=== PATIENT | female | born 1945 | race Hispanic/Latino ===

== ENCOUNTER 2019-05-08 11:37 | Observation (INO) | payer MEDICARE ==
[~2019-05-08] VITALS: Ht 153.7 cm; Wt 70.2 kg
[~2019-05-08 11:37] MED LIST: ACETAZOLAMIDE250 MG PO; GABAPENTIN100 MG; MEDROL4 MG/DOSE-
--- OUTSIDE RECORDS SUMMARY | 2019-05-08 11:43 | XMS REPORT | Summary of Care ---
Author Author [facility] [place] Organization [facility] [place] Address Unknown Phone Unavailable Encounter HQ Encntr_teetee(FIN) [id number] Date(s): 04/21/15 - 04/21/15 [facility] [place] [address] [address]- [facility] [phone] Discharge Disposition: Home Attending Physician: Quinton Jarrett MD Vital Signs No data available for this section Problem List Condition Effective Dates Status Health Status Informant Asthma(Confirmed) Active Cystocele(Confirmed) Active Diverticulitis(Confi Active rmed) Allergies, Adverse Reactions, Alerts Substance Reaction Severity Status contrast media Patient states difficulty with breathing Severe Active (iodine-based)1 1patient states reaction was 4-5 years ago Medications No data available for this section Results No data available for this section Immunizations No data available for this section Procedures Procedure Date Related Diagnosis Body Site Laparoscopic cholecystectomy 01/21/12 Social History Social History Type Response Alcohol Never Smoking Status Never smoker; Type: Cigarettes; Exposure to Tobacco Smoke None; Cigarette Smoking Last 365 Days No; Reg Smoking Cessation Counseling No Assessment and Plan No data available for this section
--- OUTSIDE RECORDS SUMMARY | 2019-05-08 11:43 | XMS REPORT | Summary of Care ---
Author Author [facility] [place] Organization [facility] [place] Address Unknown Phone Unavailable Encounter HQ Encntr_teetee(FIN) [id number] Date(s): 04/07/16 - 04/07/16 [facility] [place] [address] [address] [phone] Discharge Disposition: Home or Self Care Attending Physician: Quinton Jarrett MD Vital Signs [...]
--- OUTSIDE RECORDS SUMMARY | 2019-05-08 11:43 | XMS REPORT | Summary of Care ---
Author Organization Unknown Address Unknown Phone Unavailable Encounter HQ Encntr_teetee(FIN) [id number] Date(s): 12/25/14 - 12/25/14 [facility] [place] [address] [address]- [facility] [phone] Discharge Disposition: Home Physician Attending: Quinton Jarrett MD Vital Signs No data [...]
--- OUTSIDE RECORDS SUMMARY | 2019-05-08 11:43 | XMS REPORT | Summary of Care ---
Author Organization Unknown Address Unknown Phone Unavailable Encounter HQ Shenntr_teetee(KOBI) [id number] Date(s): 04/01/14 - 04/02/14 [facility] [address] Discharge Disposition: Home Physician Attending: Cherry Dennis MD Physician_Referring: Cherry Dennis MD Reason for Visit UNK Vital Signs 1 2 3 Most recent to oldest [Reference Range]: 162.56 cm (03/26/14 1:54 PM) Height 98.1 DegF (04/02/14 7:40 AM) 99.2 DegF *HI* (04/02/14 4:21 AM) 98.2 DegF (04/01/14 11:32 PM) Temperature Oral [96.4-99.1 DegF] 126 mmHg (04/02/14 7:40 AM) 124 mmHg (04/02/14 4:21 AM) 134 mmHg (04/01/14 11:32 PM) Systolic Blood Pressure [90-140 mmHg] 71 mmHg (04/02/14 7:40 AM) 71 mmHg (04/02/14 4:21 AM) 60 mmHg (04/01/14 11:32 PM) Diastolic Blood Pressure [60-90 mmHg] 18 BRMIN (04/02/14 7:40 AM) 18 BRMIN (04/02/14 4:21 AM) 18 BRMIN (04/01/14 11:32 PM) Respiratory Rate [14-20 BRMIN] 65 bpm (04/02/14 7:40 AM) 75 bpm (04/02/14 4:21 AM) 77 bpm (04/01/14 11:32 PM) Peripheral Pulse Rate [60-100 bpm] 69.545 kg (03/26/14 1:54 PM) Weight 26.32 m2 (03/26/14 1:54 PM) Body Mass Index Problem List Condition Effective Dates Status Health Status Informant Asthma(Confirmed) Active Cystocele(Confirmed) Active Diverticulitis(Confi Active rmed) Allergies, Adverse Reactions, Alerts Substance Reaction Severity Status contrast media Patient states difficulty with breathing Severe Active (iodine-based)1 1patient states reaction was 4-5 years ago Medications acetaminophen 1,000 mg, Route: IVPB, Drug form: INJ, ONCE, Dosing Weight 69.545, kg, PRN Pain Score 1-3, Start date: 04/01/14 14:01:00, Duration: 1 doses or times, Stop date: Limited # of times Start Date: 04/01/14 Stop Date: 04/01/14 Status: Discontinued acetaminophen-codeine #3 1 tab, Route: PO, Drug Form: TAB, Dosing Weight 69.545, kg, Q4H, PRN Pain Score 1-3, Start date: 04/01/14 15:29:00, Duration: 30 day, Stop date: 05/01/14 15:28: 00 Notes: Do not exceed 4gm/day of acetaminophen. (Same as: Tylenol with Codeine # 3) Start Date: 04/01/14 Stop Date: 04/02/14 Status: Discontinued Antibiotic Antibiotic, 1 tab, PO, BID, Refill(s) 0 Start Date: 03/26/14 Status: Ordered atorvastatin 20 mg, Daily, 0 Refill(s) Start Date: 04/01/14 Status: Ordered Cholesterol Pill Cholesterol Pill, 1 tab, PO, Daily, Refill(s) 0 Start Date: 03/26/14 Status: Ordered Dextrose 5% in Lactated Ringers IV 1,000 mL 1,000 mL, Rate: 125 ml/hr, Infuse over: 8 hr, Route: IV, Dosing Weight 69.545 kg , Total Volume: 1,000, Start date: 04/01/14 15:29:00, Duration: 30 day, Stop birdie e: 05/01/14 15:28:00 Start Date: 04/01/14 Stop Date: 04/02/14 Status: Discontinued docusate 100 mg, 1 cap, Route: PO, Drug form: CAP, BID, Dosing Weight 69.545, kg, PRN Con stipation, Start date: 04/01/14 15:29:00, Duration: 30 day, Stop date: 05/01/14 15:28:00 Notes: (Same as: Colace) (Do Not Crush) Start Date: 04/01/14 Stop Date: 04/02/14 Status: Discontinued fentaNYL 25 microgram, Route: IVP, Q5Min, Dosing Weight 69.545, kg, PRN Pain Score 4-6, S tart date: 04/01/14 14:01:00, Duration: 4 doses or times, Stop date: Limited # o f times Start Date: 04/01/14 Stop Date: 04/01/14 Status: Discontinued Flagyl 500 mg oral tablet 500 mg=1 tab, Q12H, 0 Refill(s) Start Date: 04/01/14 Status: Ordered flumazenil 0.2 mg, Route: IVP, PRN, Dosing Weight 69.545, kg, PRN Benzodiazepine Reversal, Initial dose, Start date: 04/01/14 14:01:00, Duration: 30 day, Stop date: 14:00:00 Start Date: 04/01/14 Stop Date: 04/01/14 Status: Discontinued hydromorphone 0.5 mg, Route: IVP, Q5Min, Dosing Weight 69.545, kg, PRN Pain Score 7-10, Start date: 04/01/14 14:01:00, Duration: 4 doses or times, Stop date: Limited # of melo es Start Date: 04/01/14 Stop Date: 04/01/14 Status: Discontinued ketorolac 15 mg, 1 mL, Route: IM, Drug form: INJ, Q6H, Dosing Weight 69.545, kg, Start birdie e: 04/01/14 18:00:00, Duration: 4 day, Stop date: 04/05/14 12:00:00 Notes: (Same as:Toradol) IV bolus must be given >15 seconds. Give IM administration slowly and deeply into the muscle. Not for use > 4 days. Start Date: 04/01/14 Stop Date: 04/02/14 Status: Discontinued Lactated Ringers Injection IV 1000 mL 1,000 mL, Rate: 25 ml/hr, Infuse over: 40 hr, Route: IV, Dosing Weight 69.545 kg , Total Volume: 1,000, Start date: 04/01/14 10:15:00, Duration: 30 day, Stop birdie e: 05/01/14 10:14:00 Start Date: 04/01/14 Stop Date: 04/01/14 Status: Discontinued meclizine 25 mg oral tablet 25 mg=1 tab, Daily, 0 Refill(s) Start Date: 04/01/14 Status: Ordered meperidine 25 mg, 0.5 mL, Route: IM, Drug form: INJ, Q3H, Dosing Weight 69.545, kg, PRN Xander n Score 7-10, Start date: 04/01/14 15:29:00, Duration: 48 hr, Stop date: 4 15:28:00 Notes: (Same As: Demerol) Start Date: 04/01/14 Stop Date: 04/02/14 Status: Discontinued meperidine 12.5 mg, Route: IVP, Q30Min, Dosing Weight 69.545, kg, PRN Other -See Comment, F or shivering, Start date: 04/01/14 14:01:00, Duration: 2 doses or times, Stop da te: Limited # of times Start Date: 04/01/14 Stop Date: 04/01/14 Status: Discontinued naloxone 0.04 mg, Route: IVP, Q2MIN, Dosing Weight 69.545, kg, PRN Narcotic Reversal, Sta rt date: 04/01/14 14:01:00, Duration: 8 doses or times, Stop date: Limited # of times Start Date: 04/01/14 Stop Date: 04/01/14 Status: Discontinued [place] 5/325 oral tablet 1 tab, Route: PO, Drug Form: TAB, Dosing Weight 69.545, kg, Q4H, PRN Pain, Start date: 04/01/14 14:01:00, Duration: 30 day, Stop date: 05/01/14 14:00:00 Start Date: 04/01/14 Stop Date: 04/01/14 Status: Discontinued omeprazole 40 mg, Daily, 0 Refill(s) Start Date: 04/01/14 Status: Ordered ondansetron 4 mg, Route: IVP, ONCE, Dosing Weight 69.545, kg, PRN Nausea & Vomiting, Start date: 04/01/14 14:01:00 Start Date: 04/01/14 Stop Date: 04/01/14 Status: Discontinued simethicone 160 mg, 2 tab, Route: PO, Drug form: CHEWTAB, Q2H, Dosing Weight 69.545, kg, PRN Gas, Start date: 04/01/14 15:29:00, Duration: 30 day, Stop date: 05/01/14 15:28 :00 Notes: (Same as: Mi) Start Date: 04/01/14 Stop Date: 04/02/14 Status: Discontinued tramadol 50 mg, 1 tab, Route: PO, Drug form: TAB, Q4H, Dosing Weight 69.545, kg, PRN Pain Score 4-6, Start date: 04/01/14 15:29:00, Duration: 48 hr, Stop date: 04/03/14 15:28:00 Notes: Not to exceed 400mg/day. (Same As: Ultram) Start Date: 04/01/14 Stop Date: 04/02/14 Status: Discontinued Results ELECTROLYTES Most recent to 1 2 oldest [Reference Range]: Sodium Lvl [135-145 139 mEq/L mEq/L] (03/26/14 2:45 PM) Potassium Lvl 3.6 mEq/L [3.5-5.1 mEq/L] (03/26/14 2:45 PM) Chloride Lvl [95-109 102 mEq/L mEq/L] (03/26/14 2:45 PM) CO2 [24-32 mEq/L] 29 mEq/L (03/26/14 2:45 PM) AGAP [10.0-20.0 11.6 mEq/L mEq/L] (03/26/14 2:45 PM) CHEM PANEL Most recent to 1 2 oldest [Reference Range]: Creatinine Lvl 0.6 mg/dL [0.5-1.4 mg/dL] (03/26/14 2:45 PM) eGFR 93 mL/min/1.73m2 1 *NA* (03/26/14 2:45 PM) BUN [7-22 mg/dL] 9 mg/dL (03/26/14 2:45 PM) B/C Ratio [6-25] 15 (03/26/14 2:45 PM) Glucose Lvl [70-99 115 mg/dL 2 mg/dL] *HI* (03/26/14 2:45 PM) Total Protein 7.3 g/dL [6.4-8.4 g/dL] (03/26/14 2:45 PM) Albumin Lvl [3.5-5.0 3.7 g/dL g/dL] (03/26/14 2:45 PM) Globulin [2.0-4.0 3.6 g/dL g/dL] (03/26/14 2:45 PM) A/G Ratio [0.7-1.6] 1.0 (03/26/14 2:45 PM) Calcium Lvl 8.9 mg/dL [8.5-10.5 mg/dL] (03/26/14 2:45 PM) ALT [0-65 unit/L] 28 unit/L (03/26/14 2:45 PM) AST [0-37 unit/L] 17 unit/L (03/26/14 2:45 PM) Alk Phos [39-136 83 unit/L unit/L] (03/26/14 2:45 PM) Bili Total [0.2-1.3 0.4 mg/dL mg/dL] (03/26/14 2:45 PM) 1Result Comment: The eGFR is calculated using the CKD-EPI formula. In most young, healthy individuals the eGFR will be >90 mL/min/1.73m2. The eGFR declines with age. An eGFR of 60-89 may be normal in some populations, particularly the elderly, for whom the CKD-EPI formula has not been extensively validated. Use of the eGFR is not recommended in the following populations: Individuals with unstable creatinine concentrations, including patients and those with serious co-morbid conditions. Patients with extremes in muscle mass or diet. The data above are obtained from the National Kidney Disease Education Program ( NKDEP) which additionally recommends that when the eGFR is used in patients with extremes of body mass index for purposes of drug dosing, the eGFR should be mul tiplied by the estimated BMI. 2Interpretive Data: Adult reference range values reflect the clinical guidelines of the [place] [employer]. URINE AND STOOL Most recent to 1 2 oldest [Reference Range]: UA Turbidity [Clear] Clear (04/02/14 11:45 AM) UA Color Ltyellow *NA* (04/02/14 11:45 AM) UA pH [5.0-8.0] 7.0 (04/02/14 11:45 AM) UA Spec Grav 1.004 [<=1.030] (04/02/14 11:45 AM) UA Glucose [Negative Negative mg/dL mg/dL] *NA* (04/02/14 11:45 AM) UA Blood [Negative] Large *ABN* (04/02/14 11:45 AM) UA Ketones [Negative Negative mg/dL mg/dL] *NA* (04/02/14 11:45 AM) UA Protein [Negative Negative mg/dL mg/dL] (04/02/14 11:45 AM) UA Urobilinogen <=1.0 mg/dL [0.1-1.0 mg/dL] *NA* (04/02/14 11:45 AM) UA Bili [Negative] Negative *NA* (04/02/14 11:45 AM) UA Leuk Est Moderate [Negative] *ABN* (04/02/14 11:45 AM) UA Nitrite Negative [Negative] (04/02/14 11:45 AM) UA WBC [0-5 /HPF] 58 /HPF *HI* (04/02/14 11:45 AM) UA RBC [0-2 /HPF] 129 /HPF *HI* (04/02/14 11:45 AM) UA Bacteria [None Occasional /HPF Seen /HPF] *NA* (04/02/14 11:45 AM) UA Sq Epi [Few /LPF] Occasional /LPF *NA* (04/02/14 11:45 AM) UA Amorph [place] [None Occasional /HPF Seen /HPF] *NA* (04/02/14 11:45 AM) HEMATOLOGY Most recent to 1 2 oldest [Reference Range]: WBC [3.7-10.4 K/CMM] 10.8 K/CMM 8.2 K/CMM *HI* (03/26/14 2:45 PM) (04/02/14 6:39 AM) RBC [4.20-5.40 4.16 M/CMM 4.50 M/CMM M/CMM] *LOW* (03/26/14 2:45 PM) (04/02/14 6:39 AM) Hgb [12.0-16.0 g/dL] 13.4 g/dL 14.4 g/dL (04/02/14 6:39 AM) (03/26/14 2:45 PM) Hct [36.0-48.0 %] 39.2 % 42.4 % (04/02/14 6:39 AM) (03/26/14 2:45 PM) MCV [81.0-99.0 fL] 94.2 fL 94.3 fL (04/02/14 6:39 AM) (03/26/14 2:45 PM) MCH [27.0-31.0 pg] 32.2 pg 32.1 pg *HI* *HI* (04/02/14 6:39 AM) (03/26/14 2:45 PM) MCHC [32.0-36.0 34.1 g/dL 34.0 g/dL g/dL] (04/02/14 6:39 AM) (03/26/14 2:45 PM) RDW [11.5-14.5 %] 13.4 % 13.7 % (04/02/14 6:39 AM) (03/26/14 2:45 PM) Platelet [133-450 266 K/CMM 265 K/CMM K/CMM] (04/02/14 6:39 AM) (03/26/14 2:45 PM) MPV [7.4-10.4 fL] 8.6 fL 9.1 fL (04/02/14 6:39 AM) (03/26/14 2:45 PM) Segs [45.0-75.0 %] 71.2 % 55.3 % (04/02/14 6:39 AM) (03/26/14 2:45 PM) Lymphocytes 20.8 % 30.1 % [20.0-40.0 %] (04/02/14 6:39 AM) (03/26/14 2:45 PM) Monocytes [2.0-12.0 6.3 % 9.1 % %] (04/02/14 6:39 AM) (03/26/14 2:45 PM) Eosinophils [0.0-4.0 1.0 % 4.3 % %] (04/02/14 6:39 AM) *HI* (03/26/14 2:45 PM) Basophils [0.0-1.0 0.7 % 1.2 % %] (04/02/14 6:39 AM) *HI* (03/26/14 2:45 PM) Segs-Bands # 7.7 K/CMM 4.5 K/CMM [1.5-8.1 K/CMM] (04/02/14 6:39 AM) (03/26/14 2:45 PM) Lymphocytes # 2.2 K/CMM 2.5 K/CMM [1.0-5.5 K/CMM] (04/02/14 6:39 AM) (03/26/14 2:45 PM) Monocytes # [0.0-0.8 0.7 K/CMM 0.7 K/CMM K/CMM] (04/02/14 6:39 AM) (03/26/14 2:45 PM) Eosinophils # 0.1 K/CMM 0.3 K/CMM [0.0-0.5 K/CMM] (04/02/14 6:39 AM) (03/26/14 2:45 PM) Basophils # [0.0-0.2 0.1 K/CMM 0.1 K/CMM K/CMM] (04/02/14 6:39 AM) (03/26/14 2:45 PM) Medications Administered During Your Visit No data available for this section Immunizations No data available for this section Procedures Procedure Type Body Site Date of Procedure Related Diagnosis Laparoscopic 01/21/12 12:00 AM cholecystectomy Social History Social History Type Response Alcohol Use: Never Smoking Status Never smoker, Type: Cigarettes, Exposure to Tobacco Smoke None, Cigarette Smoking Last 365 Days No, Reg Smoking Cessation Counseling No
--- OUTSIDE RECORDS SUMMARY | 2019-05-08 11:43 | XMS REPORT | Summary of Care ---
Author Author [facility] [place] Organization [facility] [place] Address Unknown Phone Unavailable Encounter HQ Marysol_teetee(FIN) [id number] Date(s): 10/22/18 - 10/22/18 [facility] [place] [address] [phone] Discharge Disposition: Home or Self Care Attending Physician: Quinton Jarrett MD Referring Physician: Quinton Jarrett MD Vital Signs No [...] Procedures Procedure Date Related Diagnosis Body Site Status Laparoscopic cholecystectomy 01/21/12 Completed Social History Social History Type Response Alcohol Never Smoking Status Never smoker; Type: Cigarettes; Exposure to Tobacco Smoke None; Cigarette Smoking Last 365 Days No; Reg Smoking Cessation Counseling No entered on: 03/26/14 Assessment and Plan No data available for this section
--- OUTSIDE RECORDS SUMMARY | 2019-05-08 11:43 | XMS REPORT ---
Author Author [facility] Address Unknown Phone Unavailable Care Team Providers Care Belt Measurer Name Role Phone Unavailable Unavailable Payers Payer Name Policy Type Policy Number Effective Date Expiration Date Problems This patient has no known problems. Allergies, Adverse Reactions, Alerts Allergy Name Allergy Type Status Severity Reaction(s) Onset Date Inactive Date Treating Clinician Comments No Known Allergies DA Active U 2018-12-21 00:00:00 Medications This patient has no known medications. Results Test Description Test Time Test Comments Text Results Atomic Results Result Comments SCR MAMM BILATERAL RICK CAD DIGITAL 2018-12-27 10:54:12 - SCR MAMM BILATERAL RICK CAD DIGITALBILATERAL DIGITAL SCREENING MAMMOGRAM 3D/2D WITH CAD: 12/27/2018CLINICAL: Asymptomatic. Digital breast tomosynthesis was performed in addition to routine CC and MLO views. Current mammographic images were evaluated by either a [employer] M-Vu or a [employer] ImageChecker CAD (computer aided detection system). Comparison is made to exams dated 06/09/2016 mammogram, mammogram, and 06/03/2014 mammogram - [facility]-. The tissue of both breasts is predominantly fatty. No suspicious mass, architectural distortion, malignant type calcification, or lymph node abnormality detected. Breast architecture is stable compared to prior exams.IMPRESSION: NEGATIVEThere is no mammographic evidence of malignancy. Resume annual screening mammography in one year. Bandar Brown M.D. qn/penrad:12/27/2018 10:54:12 [employer]: Garima IRIZARRY, [facility]-FWletter sent: BIRADS 1-2 Normal Mammogram BI-RADS: 1 Negative CHEMISTRY 8 PROFILE 2018-12-21 14:41:00 ISTAT-SODIUM (test code=NAP) mmol/L 135-148 ISTAT-POTASSIUM (test code=KP) mmol/L 3.5-5.5 ISTAT-CHLORIDE (test code=CLP) mmol/L 101-109 ISTAT CARBON DIOXIDE (test code=ISTAT-CO2) mmol/L 21-32 ISTAT CALCIUM IONIZED (test code=ISTAT-AMENA) mg/dL 1.12-1.32 ISTAT-ANION GAP (test code=GAPP) MEQ/L 10-20 ISTAT-GLUCOSE (test code=GLUP) mg/dL 74-106 ISTAT-BUN (test code=BUNP) mg/dL 3-21 BEDSIDE CREATININE (test code=CREATBED) mg/dL 0.7-1.3 GLOMERULAR FILTRATION RATE POC (test code=GFRBED) 121 >60 CHEMISTRY 8 [id number] 14:41:00* Test Item Value Reference Range Comments ISTAT-SODIUM (test code=NAP) 141 mmol/L 135-148 ISTAT-POTASSIUM (test code=KP) 3.2 mmol/L 3.5-5.5 ISTAT-CHLORIDE (test code=CLP) 104 mmol/L 101-109 ISTAT CARBON DIOXIDE (test code=ISTAT-CO2) 25.0 mmol/L 21-32 ISTAT CALCIUM IONIZED (test code=ISTAT-AMENA) 1.19 mg/dL 1.12-1.32 ISTAT-ANION GAP (test code=GAPP) 16.0 MEQ/L 10-20 ISTAT-GLUCOSE (test code=GLUP) 116 mg/dL 74-106 ISTAT-BUN (test code=BUNP) 18 mg/dL 3-21 BEDSIDE CREATININE (test code=CREATBED) 0.5 mg/dL 0.7-1.3 GLOMERULAR FILTRATION RATE POC (test code=GFRBED) 121 >60 BASIC METABOLIC [id number] 11:35:00* Test Item Value Reference Range Comments SODIUM (test code=NA) 141 mmol/L 136-145 POTASSIUM (test code=K) 3.3 mmol/L 3.5-5.1 CHLORIDE (test code=CL) 107.0 mmol/L 98-107 CARBON DIOXIDE (test code=CO2) 27.0 mmol/L 21-32 ANION GAP (test code=GAP) 10.3 10-20 GLUCOSE (test code=GLU) 113 mg/dL 74-106 BLOOD UREA NITROGEN (test code=BUN) 18 mg/dL 7-18 GLOMERULAR FILTRATION RATE (test code=GFR) > 60 mL/min >=60 Estimated GFR by using Modified MDRD formula.Chronic kidney disease is defined as either kidney damageor GFR <60 mL/min/1.73 m2 for >3 months. CREATININE (test code=CREAT) 0.60 mg/dL 0.55-1.02 Note change in reference range due to change in reagent. BUN/CREATININE RATIO (test code=BUN/CREA) 30.0 10-20 CALCIUM (test code=CA) 9.2 mg/dL 8.5-10.1 TROPONIN I [id number] 11:14:00* Test Item Value Reference Range Comments TROPONIN I RAPID (test code=TROPIRAP) 0.00 ng/mL <0.08 Please Note New Reference Range 0.00-0.079 ng/mL - Negative>or=0.08 ng/mL - Positive The use of serial sampling and testing protocol is arecommended practice.An elevated troponin level alone is often not sufficient fordiagnosis of myocardial infarction. Troponin results obtained by different assays may vary.Evaluation of the extent of myocardial damage based onincrease of troponin would be valid only if similarmethodology is used. CBC W/O [id number] 11:10:00* Test Item Value Reference Range Comments WHITE BLOOD CELL (test code=WBC) K/mm3 4.5-12.5 RED BLOOD CELL (test code=RBC) mill/mm3 3.7-5.2 HEMOGLOBIN (test code=HGB) 15.1 gram/dL 11.5-15.5 HEMATOCRIT (test code=HCT) % 36.0-46.0 MEAN CELL VOLUME (test code=MCV) fL 80-98 MEAN CELL HGB (test code=MCH) picogram 27.0-33.0 MEAN CELL HGB CONCETRATION (test code=MCHC) gram/dL 33.0-36.0 RED CELL DISTRIBUTION WIDTH (test code=RDW) % 11.6-16.2 PLATELET COUNT (test code=PLT) K/mm3 150-450 MEAN PLATELET VOLUME (test code=MPV) fL 6.7-11.0 CBC W/O [id number] 11:10:00* Test Item Value Reference Range Comments WHITE BLOOD CELL (test code=WBC) 9.8 K/mm3 4.5-12.5 RED BLOOD CELL (test code=RBC) 4.95 mill/mm3 3.7-5.2 HEMOGLOBIN (test code=HGB) 15.1 gram/dL 11.5-15.5 HEMATOCRIT (test code=HCT) 47.8 % 36.0-46.0 MEAN CELL VOLUME (test code=MCV) 96.6 fL 80-98 MEAN CELL HGB (test code=MCH) 30.5 picogram 27.0-33.0 MEAN CELL HGB CONCETRATION (test code=MCHC) 31.6 gram/dL 33.0-36.0 RED CELL DISTRIBUTION WIDTH (test code=RDW) 13.2 % 11.6-16.2 PLATELET COUNT (test code=PLT) 256 K/mm3 150-450 MEAN PLATELET VOLUME (test code=MPV) 10.9 fL 6.7-11.0
--- OUTSIDE RECORDS SUMMARY | 2019-05-08 11:43 | XMS REPORT | Continuity of Care Document ---
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 Name Role Phone [employer] Unavailable Unavailable Problems Problem Status Onset Date Classification Date Reported Comments Source DX: G50.0=TRIGEMINAL NEURALGIA Active 09/27/2016 [facility] R10.2 - PELVIC AND PERINEAL PAIN Active 04/05/2016 [facility] [place] UNK Active 03/24/2014 [facility] Asthma (disorder) Active [facility] [place] 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 [facility]/25/2018 [facility] Diverticulitis (disorder) Active Problem 10/25/2018 [facility] TRIGEMINAL NEURALGIA Active [facility] Medications Medication Details Route Status Patient Instructions Ordering Provider Order Date Source Ketorolac 15 mg, 1 mL, Route: IM, Drug form: INJ, Q6H, Dosing Weight 69.545, kg, Start date: 04/01/14 18:00:00, Duration: 4 day, Stop date: 04/05/14 12:00:00Notes: (Same as:Toradol) IV bolus must be given >15 seconds. Give IM administration slowly and deeply into the muscle. Not for use > 4 days. No Longer Active 04/01/2014 [facility] Meperidine 25 mg, 0.5 mL, Route: IM, Drug form: INJ, Q3H, Dosing Weight 69.545, kg, PRN Pain Score 7-10, Start date: 04/01/14 15:29:00, Duration: 48 hr, Stop date: 04/03/14 15:28:00Notes: (Same As: Demerol) No Longer Active 04/01/2014 [facility] Tramadol 50 mg, 1 tab, Route: PO, Drug form: TAB, Q4H, Dosing Weight 69.545, kg, PRN Pain Score 4-6, Start date: 04/01/14 15:29:00, Duration: 48 hr, Stop date: 04/03/14 15:28:00Notes: Not to exceed 400mg/day. (Same As: Ultram) No Longer Active 04/01/2014 [facility] Calcium Chloride 0.002 MEQ/ML / Glucose 50 MG/ML / Potassium Chloride 0.004 MEQ/ML / Sodium Chloride 0.147 MEQ/ML Injectable Solution 1,000 mL, Rate: 125 ml/hr, Infuse over: 8 hr, Route: IV, Dosing Weight 69.545 kg, Total Volume: 1,000, Start date: 04/01/14 15:29:00, Duration: 30 day, Stop date: 05/01/14 15:28:00 No Longer Active 04/01/2014 [facility] acetaminophen-codeine #3 1 tab, Route: PO, Drug Form: TAB, Dosing Weight 69.545, kg, Q4H, PRN Pain Score 1-3, Start date: 04/01/14 15:29:00, Duration: 30 day, Stop date: 05/01/14 15:28:00Notes: Do not exceed 4gm/day of acetaminophen. (Same as: Tylenol with Codeine # 3) No Longer Active 04/01/2014 [facility] Docusate 100 mg, 1 cap, Route: PO, Drug form: CAP, BID, Dosing Weight 69.545, kg, PRN Constipation, Start date: 04/01/14 15:29:00, Duration: 30 day, Stop date: 05/01/14 15:28:00Notes: (Same as: Colace) (Do Not Crush) No Longer Active 04/01/2014 [facility] Simethicone 160 mg, 2 tab, Route: PO, Drug form: CHEWTAB, Q2H, Dosing Weight 69.545, kg, PRN Gas, Start date: 04/01/14 15:29:00, Duration: 30 day, Stop date: 05/01/14 15:28:00Notes: (Same as: Mylicon) No Longer Active 04/01/2014 [facility] Acetaminophen 325 MG / Hydrocodone Bitartrate 5 MG Oral Tablet [[place] 5/325] 1 tab, Route: PO, Drug Form: TAB, Dosing Weight 69.545, kg, Q4H, PRN Pain, Start date: 04/01/14 14:01:00, Duration: 30 day, Stop date: 05/01/14 14:00:00 Inactive 04/01/2014 [facility] Ondansetron 4 mg, Route: IVP, ONCE, Dosing Weight 69.545, kg, PRN Nausea & Vomiting, Start date: 04/01/14 14:01:00 Inactive 04/01/2014 [facility] Acetaminophen 1,000 mg, Route: IVPB, Drug form: INJ, ONCE, Dosing Weight 69.545, kg, PRN Pain Score 1-3, Start date: 04/01/14 14:01:00, Duration: 1 doses or times, Stop date: Limited # of times Inactive 04/01/2014 [facility] Flumazenil 0.2 mg, Route: IVP, PRN, Dosing Weight 69.545, kg, PRN Benzodiazepine Reversal, Initial dose, Start date: 04/01/14 14:01:00, Duration: 30 day, Stop date: 05/01/14 14:00:00 Inactive 04/01/2014 [facility] Meperidine 12.5 mg, Route: IVP, Q30Min, Dosing Weight 69.545, kg, PRN Other -See Comment, For shivering, Start date: 04/01/14 14:01:00, Duration: 2 doses or times, Stop date: Limited # of times Inactive 04/01/2014 [facility] Hydromorphone 0.5 mg, Route: IVP, Q5Min, Dosing Weight 69.545, kg, PRN Pain Score 7-10, Start date: 04/01/14 14:01:00, Duration: 4 doses or times, Stop date: Limited # of times Inactive 04/01/2014 [facility] Fentanyl 25 microgram, Route: IVP, Q5Min, Dosing Weight 69.545, kg, PRN Pain Score 4-6, Start date: 04/01/14 14:01:00, Duration: 4 doses or times, Stop date: Limited # of times Inactive 04/01/2014 [facility] Naloxone 0.04 mg, Route: IVP, Q2MIN, Dosing Weight 69.545, kg, PRN Narcotic Reversal, Start date: 04/01/14 14:01:00, Duration: 8 doses or times, Stop date: Limited # of times Inactive 04/01/2014 [facility] meclizine 25 mg oral tablet 25 mg=1 tab, Daily, 0 Refill(s) Active 04/01/2014 [facility] atorvastatin 20 mg, Daily, 0 Refill(s) Active 04/01/2014 [facility] Omeprazole 40 mg, Daily, 0 Refill(s) Active 04/01/2014 [facility] Metronidazole 500 MG Oral Tablet [Flagyl] 500 mg=1 tab, Q12H, 0 Refill(s) Active 04/01/2014 [facility] Calcium Chloride 0.0014 MEQ/ML / Potassium Chloride 0.004 MEQ/ML / Sodium Chloride 0.103 MEQ/ML / Sodium Lactate 0.028 MEQ/ML Injectable Solution 1,000 mL, Rate: 25 ml/hr, Infuse over: 40 hr, Route: IV, Dosing Weight 69.545 kg, Total Volume: 1,000, Start date: 04/01/14 10:15:00, Duration: 30 day, Stop date: 05/01/14 10:14:00 Inactive 04/01/2014 [facility] Cholesterol Pill Cholesterol Pill, 1 tab, PO, Daily, Refill(s) 0 Active 03/26/2014 [facility] Antibiotic Antibiotic, 1 tab, PO, BID, Refill(s) 0 Active 03/26/2014 [facility] Allergies, Adverse Reactions, Alerts Substance Category Reaction Severity Reaction type Status Date Reported Comments Source contrast media (iodine-based)<sup>1</sup> Assertion Patient states difficulty with breathing Severe Drug allergy Active patient states reaction was 4- 5 years ago [facility] [place] Immunizations No Data Provided for This Section Results Order Name Results Value Reference Range Date Interpretation Comments Source URINE AND STOOL UA WBC 58 0 - 5 04/02/2014 [facility] URINE AND STOOL UA Sq Epi Occasional /LPF Few /LPF 04/02/2014 [facility] URINE AND STOOL UA Leuk Est Moderate *ABN* (04/02/14 11:45 AM) Negative 04/02/2014 [facility] URINE AND STOOL UA Color Ltyellow 04/02/2014 [facility] URINE AND STOOL UA Urobilinogen <=1.0 mg/dL 0.1 - 1.0 04/02/2014 [facility] URINE AND STOOL UA Bacteria Occasional /HPF None Seen /HPF 04/02/2014 [facility] URINE AND STOOL UA RBC 129 0 - 2 04/02/2014 [facility] URINE AND STOOL UA Nitrite Negative (04/02/14 11:45 AM) Negative 04/02/2014 [facility] URINE AND STOOL UA Blood Large *ABN* (04/02/14 11:45 AM) Negative 04/02/2014 [facility] URINE AND STOOL UA Bili Negative *NA* (04/02/14 11:45 AM) Negative 04/02/2014 [facility] URINE AND STOOL UA Protein Negative mg/dL Negative mg/dL 04/02/2014 [facility] URINE AND STOOL UA Ketones Negative mg/dL Negative mg/dL 04/02/2014 [facility] URINE AND STOOL UA Glucose Negative mg/dL Negative mg/dL 04/02/2014 [facility] URINE AND STOOL UA pH 7.0 5.0 - 8.0 04/02/2014 [facility] URINE AND STOOL UA Spec Grav 1.004 <=1.030 04/02/2014 [facility] URINE AND STOOL UA Turbidity Clear (04/02/14 11:45 AM) Clear 04/02/2014 [facility] URINE AND STOOL UA Amorph [place] Occasional /HPF None Seen /HPF 04/02/2014 [facility] HEMATOLOGY Basophils 0.7 0.0 - 1.0 04/02/2014 [facility] HEMATOLOGY Lymphocytes 20.8 20.0 - 40.0 04/02/2014 [facility] HEMATOLOGY Segs 71.2 45.0 - 75.0 04/02/2014 [facility] HEMATOLOGY Monocytes 6.3 2.0 - 12.0 04/02/2014 [facility] Eosinophils 1.0 0.0 - 4.0 04/02/2014 [facility] HEMATOLOGY Segs-Bands # 7.7 1.5 - 8.1 04/02/2014 [facility] HEMATOLOGY Monocytes # 0.7 0.0 - 0.8 04/02/2014 [facility] HEMATOLOGY Lymphocytes # 2.2 1.0 - 5.5 04/02/2014 [facility] HEMATOLOGY Basophils # 0.1 0.0 - 0.2 04/02/2014 [facility] HEMATOLOGY Eosinophils # 0.1 0.0 - 0.5 04/02/2014 [facility] MPV 8.6 7.4 - 10.4 04/02/2014 [facility] Platelet 266 133 - 450 04/02/2014 [facility] MCH 32.2 27.0 - 31.0 04/02/2014 [facility] MCHC 34.1 32.0 - 36.0 04/02/2014 [facility] HEMATOLOGY RDW 13.4 11.5 - 14.5 04/02/2014 [facility] HEMATOLOGY RBC 4.16 4.20 - 5.40 04/02/2014 [facility] HEMATOLOGY Hgb 13.4 12.0 - 16.0 04/02/2014 [facility] HEMATOLOGY WBC 10.8 3.7 - 10.4 04/02/2014 [facility] HEMATOLOGY MCV 94.2 81.0 - 99.0 04/02/2014 [facility] HEMATOLOGY Hct 39.2 36.0 - 48.0 04/02/2014 [facility] CHEM PANEL A/G Ratio 1.0 0.7 - 1.6 03/26/2014 [facility] CHEM PANEL Globulin 3.6 2.0 - 4.0 03/26/2014 [facility] CHEM PANEL AGAP 11.6 10.0 - 20.0 03/26/2014 [facility] CHEM PANEL B/C Ratio 15 6 - 25 03/26/2014 [facility] CHEM PANEL eGFR 93 03/26/2014 <sup>1</sup>Result Comment: The eGFR is calculated using the CKD-EPI formula. In most young, healthy individuals the eGFR will be >90 mL/min/1.73m2. The eGFR declines with age. An eGFR of 60-89 may be normal in some populations, particularly the elderly, for whom the CKD-EPI formula has not been extensively validated. Use of the eGFR is not recommended in the following populations:& lt;br/>
Individuals with unstable creatinine concentrations, including patients and those with serious co-morbid conditions.

Patients with extremes in muscle mass or diet.

The data above are obtained from the National Kidney Disease Education Program (NKDEP) which additionally recommends that when the eGFR is used in patients with extremes of body mass index for purposes of drug dosing, the eGFR should be multiplied by the estimated BMI. [facility] CHEM PANEL Bili Total 0.4 0.2 - 1.3 03/26/2014 [facility] CHEM PANEL Alk Phos 83 39 - 136 03/26/2014 [facility] CHEM PANEL Albumin Lvl 3.7 3.5 - 5.0 03/26/2014 [facility] CHEM PANEL AST 17 0 - 37 03/26/2014 [facility] CHEM PANEL ALT 28 0 - 65 03/26/2014 [facility] CHEM PANEL Total Protein 7.3 6.4 - 8.4 03/26/2014 [facility] CHEM PANEL Calcium Lvl 8.9 8.5 - 10.5 03/26/2014 [facility] CHEM PANEL Potassium Lvl 3.6 3.5 - 5.1 03/26/2014 [facility] CHEM PANEL CO2 29 24 - 32 03/26/2014 [facility] CHEM PANEL Chloride Lvl 102 95 - 109 03/26/2014 [facility] CHEM PANEL Sodium Lvl 139 135 - 145 03/26/2014 [facility] CHEM PANEL Glucose Lvl 115 70 - 99 03/26/2014 <sup>2</sup>Interpretive Data: Adult reference range values reflect the clinical guidelines
of the [place] [employer]. [facility] CHEM PANEL BUN 9 7 - 22 03/26/2014 [facility] CHEM PANEL Creatinine Lvl 0.6 0.5 - 1.4 03/26/2014 [facility] HEMATOLOGY Eosinophils # 0.3 0.0 - 0.5 03/26/2014 [facility] HEMATOLOGY Basophils # 0.1 0.0 - 0.2 03/26/2014 [facility] HEMATOLOGY Monocytes 9.1 2.0 - 12.0 03/26/2014 [facility] HEMATOLOGY Segs-Bands # 4.5 1.5 - 8.1 03/26/2014 [facility] HEMATOLOGY Lymphocytes # 2.5 1.0 - 5.5 03/26/2014 [facility] HEMATOLOGY Lymphocytes 30.1 20.0 - 40.0 03/26/2014 [facility] HEMATOLOGY Segs 55.3 45.0 - 75.0 03/26/2014 [facility] HEMATOLOGY Monocytes # 0.7 0.0 - 0.8 03/26/2014 [facility] HEMATOLOGY Eosinophils 4.3 0.0 - 4.0 03/26/2014 [facility] HEMATOLOGY Basophils 1.2 0.0 - 1.0 03/26/2014 [facility] HEMATOLOGY WBC 8.2 3.7 - 10.4 03/26/2014 [facility] HEMATOLOGY Hgb 14.4 12.0 - 16.0 03/26/2014 [facility] HEMATOLOGY RBC 4.50 4.20 - 5.40 03/26/2014 [facility] HEMATOLOGY Hct 42.4 36.0 - 48.0 03/26/2014 [facility] HEMATOLOGY Platelet 265 133 - 450 03/26/2014 [facility] HEMATOLOGY MPV 9.1 7.4 - 10.4 03/26/2014 [facility] HEMATOLOGY MCV 94.3 81.0 - 99.0 03/26/2014 [facility] MCH 32.1 27.0 - 31.0 03/26/2014 [facility] HEMATOLOGY RDW 13.7 11.5 - 14.5 03/26/2014 [facility] MCHC 34.0 32.0 - 36.0 03/26/2014 [facility] Pathology Reports No Data Provided for This Section Diagnostic Reports Report Value Date Source Bone Density [employer] MA BONE DENSITY ASSESSMENT: 10/22/2018 CLINICAL DATA: Post menopausal. Other Specified Disorders Of Bone Density And Structure, Unspecified Site/M85.80 FINDINGS: Bone density evaluation was performed 10/22/2018 on the right femur neck using a Hologic unit. The BMD average for the exam is 0.638 g/cm2. The T-score is - 1.90. This matches the World Health Organization's criteria for osteopenia and places the patient at a medium risk for fracture. An additional bone density evaluation was performed 10/22/2018 on the left femur neck using a Hologic unit. The BMD average for the exam is 0.659 g/cm2. The T- score is -1.70 and the Z-score is 0.20. This matches the World Health Organization's criteria for osteopenia and places the patient at a medium risk for fracture. An additional bone density evaluation was performed 10/22/2018 on the right hip using a Hologic unit. The BMD average for the exam is 0.763 g/cm2. The T-score is -1.50 and the Z-score is 0.30. This matches the World Health Organization's criteria for osteopenia and places the patient at a medium risk for fracture. An additional bone density evaluation was performed 10/22/2018 on the left hip using a Hologic unit. The BMD average for the exam is 0.809 g/cm2. The T-score is -1.10 and the Z-score is 0.60. This matches the World Health Organization's criteria for osteopenia and places the patient at a medium risk for fracture. An additional bone density evaluation was performed 10/22/2018 on the AP L1-L4 region of spine using a Hologic unit. The BMD average for the exam is 0.860 g/cm2. The T-score is -1.70 and the Z-score is 0.70. This matches the World Health Organization's criteria for osteopenia and places the patient at a medium risk for fracture. FRAX 10 year probability of major osteoporotic fracture is 8.9% and hip fracture is 2%. IMPRESSION: OSTEOPENIA Patient is at medium risk for fracture. This exam was interpreted at [id number] for RUSTY Mcmillan, BALB[place] 15. [place] M.D. cm/penrad:10/22/2018 10:58:05 [employer] Consultant(s): Tonya Brumfield RT(R)(M), [facility] 10/22/2018 KEVIN Mcmillan Brain wo contrast MRI MRI BRAIN WITHOUT CONTRAST HISTORY: Trigeminal neuralgia; Per pt c/o tooth root canal which still remains painful. Patient reports worsening headache for one month COMPARISON: None available. TECHNIQUE: Multiecho multiplanar images of the brain were done without contrast injection. Several high resolution sequences of the skull base and brainstem were included. FINDINGS: 5th cranial nerve at the skull base appears normal bilaterally. Normal Gasserian ganglion bilaterally. No posterior fossa mass is seen There is no acute infarct or restricted diffusion. The ventricles, sulci, and cisterns are normal. There are a few scattered nonspecific foci of T2/FLAIR signal abnormality, likely reflecting minimal chronic small vessel ischemic change. There is no other signal abnormality in the whipple or the white matter. No mass, hemorrhage, or extra-axial fluid collection is identified. The cerebellar tonsils are normal in position. Normal T2 flow voids are present. Visualized paranasal sinuses are clear. IMPRESSION: 1. No abnormality of the 5th cranial nerves. 2. Minimal microvascular chronic ischemic change. 3. Otherwise normal study. SL: [id number] 09/30/2016 [facility] Pelvis w Pelvis Transvaginal US EXAM: Pelvis w Pelvis Transvaginal US HISTORY: R10.2 Pelvic and perineal pain COMPARISON: None Technique: Transabdominal and Transvaginal Whipple scale and color doppler with limited spectral doppler imaging of the uterus and ovaries. Findings: The uterus is surgically absent. Neither ovary is seen. No adnexal mass is evident. There is no free fluid. The bladder is distended and grossly unremarkable. IMPRESSION: Unremarkable pelvic ultrasound. 04/07/2016 KEVIN Mcmillan Spine lumbar 2 or 3 views DX EXAM: Spine lumbar AP lateral HISTORY: 721.3 Lumbosacral Spondylosis without Myelopathy COMPARISON: None AP alignment is normal. There are mild multilevel discogenic degenerative changes. There is mild vertebral body height loss at T12 which is stable compared to CT from 12/25/2014. Moderate facet arthropathy of the lower lumbar spine is noted. IMPRESSION: Degenerative change as above. 04/21/2015 KEVIN Mcmillan Abdomen/Pelvis wo IV contrast CT HISTORY: Abdominal pain TECHNIQUE: Multidetector axial images obtained through the abdomen and pelvis without the use of IV contrast. Enteric contrast was administered. Multiplanar reformats obtained. DLP: 1029.11 COMPARISON: Previous exam of 02/04/2014 FINDINGS: Bibasilar scarring again noted. Evaluation of the solid intra-abdominal organs is limited secondary to lack of IV contrast. Within the limits of the exam, the liver, spleen, adrenals, pancreas, and kidneys are normal. Stable left parapelvic cyst. No hydronephrosis bilaterally. The gallbladder is surgically absent. Abdominal aorta is normal in caliber. Mild atherosclerotic disease. No abdominal or pelvic adenopathy. Bowel loops are normal in caliber. No obstruction. Colonic diverticulosis is present without imaging evidence for acute diverticulitis. Interval resolution of mesenteric lymph node prominence and mesenteric fat stranding. No free fluid in the abdomen or pelvis. Uterus is vertically absent. The urinary bladder is within normal limits. No lytic or blastic osseous lesions identified. Mild multilevel degenerative disc disease. IMPRESSION: 1. Interval resolution of mesenteric fat stranding and prominent lymph nodes. 2. Colonic diverticulosis without imaging evidence for acute diverticulitis. 3. Stable left-sided parapelvic cyst. 12/25/2014 KEVIN Mcmillan Hip 2 views DX EXAMINATION: Left hip minimum 2 views HISTORY: Left hip pain. FINDINGS: Frontal and frog leg lateral views of the left hip are performed without comparison. 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 There is no fracture or dislocation. The femoral head is well-seated within the acetabulum. The hip joint space is normal. IMPRESSION: 1. 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 06/04/2014 KEVIN Mcmillan Chest 2 views PA and lateral: The aorta is tortuous. The cardiomediastinal silhouette, pulmonary vasculature and william are otherwise within normal limits. The lungs and pleural spaces are clear. There are no significant osseous abnormalities. IMPRESSION: No acute radiographic abnormality in the chest. SL:13 03/26/2014 [facility] Consultation Notes No Data Provided for This Section Discharge Summaries No Data Provided for This Section History and Physicals No Data Provided for This Section Vital Signs Vital Sign Value Date Comments Source Diastolic (mm Hg) 71 04/02/2014 [facility] Respitory Rate 18 04/02/2014 [facility] Systolic (mm Hg) 126 04/02/2014 [facility] Temperature Oral (F) 98.1 F 04/02/2014 [facility] Heart Rate 65 04/02/2014 [facility] Heart Rate 75 04/02/2014 [facility] Respitory Rate 18 04/02/2014 [facility] Systolic (mm Hg) 124 04/02/2014 [facility] Diastolic (mm Hg) 71 04/02/2014 [facility] Temperature Oral (F) 99.2 F 04/02/2014 [facility] Systolic (mm Hg) 134 04/02/2014 [facility] Respitory Rate 18 04/02/2014 [facility] Temperature Oral (F) 98.2 F 04/02/2014 [facility] Heart Rate 77 04/02/2014 [facility] Diastolic (mm Hg) 60 04/02/2014 [facility] Weight 69.545 03/26/2014 [facility] Height 162.56 cm 03/26/2014 [facility] BMI Calculated 26.32 03/26/2014 [facility] Encounters Location Location Details Encounter Type Encounter Number Reason For Visit Attending Provider ADM Date DC Date Status Source [facility] [id number] Cherry Dennis 04/01/2014 04/02/2014 [facility] [place] [facility] [id number] Quinton Jarrett 06/04/2014 06/05/2014 [facility] [place] [place] [facility] [id number] Quinton Jarrett 12/25/2014 12/26/2014 [facility] [place] [place] [facility] [id number] Quinton Jarrett 04/21/2015 04/22/2015 [facility] [place] [facility] [place] [facility] [id number] Quinton Jarrett 04/07/2016 [facility] [id number] Cari Mitchelldalorrie 09/30/2016 10/01/2016 [facility] [place] [facility] [id number] Quinton Jarrett 10/22/2018 10/23/2018 KEVIN Mcmillan Procedures Procedure Code Date Perfomer Comments Source Laparoscopic cholecystectomy [id number] 01/21/2012 KEVIN Mcmillan, Gav[place] Assessment and Plan No Data Provided for This Section Plan of Care No Data Provided for This Section Social History Social History Date Source Social History TypeResponse Alcohol Never Smoking Status Never smoker; Type: Cigarettes; Exposure to Tobacco Smoke None; Cigarette Smoking Last 365 Days No; Reg Smoking Cessation Counseling No entered on: 03/26/14 03/26/2014 KEVIN Mcmillan Social History TypeResponse Alcohol Never Smoking Status Never smoker; Type: Cigarettes; Exposure to Tobacco Smoke None; Cigarette Smoking Last 365 Days No; Reg Smoking Cessation Counseling No 03/26/2014 [facility] Family History No Data Provided for This Section Advance Directives No Data Provided for This Section Functional Status No Data Provided for This Section
--- OUTSIDE RECORDS SUMMARY | 2019-05-08 11:43 | XMS REPORT | Summary of Care ---
Author Organization Unknown Address Unknown Phone Unavailable Encounter HQ Encntr_teetee([facility]) [id number] Date(s): 06/04/14 - 06/04/14 [facility] Outpatient Imaging [place] [address] [place] [id number] U [place] Discharge Disposition: Home Physician Attending: Quinton Jarrett MD Reason for Visit 843.9 - [employer] Problem List Condition Effective Dates Status Health Status Informant Asthma(Confirmed) Active Cystocele(Confirmed) Active Diverticulitis(Confi Active rmed) Allergies, Adverse Reactions, Alerts Substance Reaction Severity Status contrast media Patient states difficulty with breathing Severe Active (iodine-based)1 1patient states reaction was 4-5 years ago Medications No data available for this section Medications Administered During Your Visit No data available for this section Immunizations No data available for this section Social History Social History Type Response Alcohol Use: Never Smoking Status Never smoker, Type: Cigarettes, Exposure to Tobacco Smoke None, Cigarette Smoking Last 365 Days No, Reg Smoking Cessation Counseling No
--- OUTSIDE RECORDS SUMMARY | 2019-05-08 11:43 | XMS REPORT | Summary of Care ---
Author Author [facility] Organization [facility] Address Unknown Phone Unavailable Encounter HQ Marysol_teetee([facility]) [id number] Date(s): 09/30/16 - 09/30/16 [facility] [address] [place] [address]- Discharge Disposition: Home or Self Care Attending Physician: Cari Ovalle MD Referring Physician: Cari Ovalle MD Vital Signs No data available for [...]
[2019-05-08 12:31] LABS: INR 0.94; PROTHROMBIN TIME 13.1 seconds (11.9-14.5)
[2019-05-08 12:32] LABS: PARTIAL THROMBOPLASTIN TIME 29.7 seconds (23.8-35.5)
[2019-05-08 12:39] LABS: BASOPHILS # (AUTO) 0.1 (0.0-0.1); EOSINOPHILS # (AUTO) 0.2 (0.0-0.4); EOSINOPHILS % 2.3 % (0.0-6.0); HEMATOCRIT 41.9 % (34.2-44.1); HEMOGLOBIN 14.5 g/dL (12.0-16.0); LYMPHOCYTES # (AUTO) 2.2 (1.0-3.2); LYMPHOCYTES % 31.2 % (18.0-39.1); MEAN CORPUSCULAR HEMOGLOBIN 32.2 pg (28-32); MEAN CORPUSCULAR HGB CONC 34.6 g/dL (31-35); MEAN CORPUSCULAR VOLUME 93.1 fL (81-99); MONOCYTES # (AUTO) 0.4 (0.2-0.8); MONOCYTES % 5.6 % (4.4-11.3); NEUTROPHILS # (AUTO) 4.2 (2.1-6.9); NEUTROPHILS % 59.8 % (38.7-80.0); PLATELET COUNT 244 x10e3/uL (140-360); RED CELL DISTRIBUTION WIDTH 12.8 % (11.7-14.4)
[2019-05-08 12:40] LABS: ALANINE AMINOTRANSFERASE 13 IU/L (0-55); ALBUMIN 3.7 g/dL (3.5-5.0); ALBUMIN/GLOBULIN RATIO 1.1 (0.8-2.0); ALKALINE PHOSPHATASE 75 IU/L (40-150); AMYLASE 69 U/L (25-125); BLOOD UREA NITROGEN 10 mg/dL (7-26); BUN/CREATININE RATIO 15 (6-25); CALCIUM 9.4 mg/dL (8.4-10.2); CARBON DIOXIDE 26 mmol/L (22-29); CHLORIDE 104 mmol/L (98-107); CREATININE, SERUM 0.66 mg/dL (0.57-1.11); EST GLOMERULAR FILTRATION RATE > 60 ML/MIN (60-); GLUCOSE 109 mg/dL (74-118); LIPASE 18 U/L (8-78); SODIUM 140 mmol/L (136-145)
[2019-05-08 13:36] LABS: BILIRUBIN,URINE NEGATIVE (NEGATIVE); CLARITY,URINE CLEAR (CLEAR); COLOR,URINE YELLOW (YELLOW); KETONES,URINE NEGATIVE (NEGATIVE); LEUKOCYTE ESTERASE ,URINE NEGATIVE (NEGATIVE); NITRITE,URINE NEGATIVE (NEGATIVE); PROTEIN,URINE DIPSTICK NEGATIVE (NEGATIVE); URINE UROBILINOGEN 0.2 mg/dL (0.2 - 1)
[2019-05-08 13:49] LABS: EPITHELIAL CELLS,URINE RARE /LPF
[2019-05-08] MEDS ORDERED: FAMOTIDINE 20 MG/2 ML VIAL IV ONE (14:00)
--- NOTE | 2019-05-08 14:29 | Diagnostic Imaging Report ---
EXAM: CT Abdomen and Pelvis WITH intravenous contrast INDICATION: Abdominal pain, rectal bleeding COMPARISON: None. TECHNIQUE: Abdomen and pelvis were scanned utilizing a multidetector helical scanner from the lung base to the pubic symphysis after administration of IV contrast. Coronal and sagittal reformations were obtained. Routine protocol was performed. Scan was performed during portal venous phase. IV CONTRAST: 100mL of Isovue 370 ORAL CONTRAST: Water RADIATION DOSE: Total DLP: 397.9 mGy*cm Dose modulation, iterative reconstruction, and/or weight based adjustment of the mA/kV was utilized to reduce the radiation dose to as low as reasonably achievable. FINDINGS: LOWER THORAX: Normal. HEPATOBILIARY: Diffuse hepatic steatosis. No focal liver lesion. No biliary ductal dilation. Status post cholecystectomy. SPLEEN: No splenomegaly. PANCREAS: No focal masses or ductal dilatation. ADRENALS: No adrenal nodules. KIDNEYS/URETERS: Mild bilateral hydronephrosis. No renal calculi or solid mass lesions. PELVIC ORGANS/BLADDER: Distended urine filled bladder. Status post hysterectomy. PERITONEUM / RETROPERITONEUM: No free air or fluid. LYMPH NODES: No lymphadenopathy. VESSELS: Scattered atherosclerotic calcifications of the nonaneurysmal abdominal aorta and major branches. GI TRACT: Sigmoid colon diverticulosis. No CT evidence of diverticulitis. No abnormal bowel wall thickening. No bowel obstruction. BONES AND SOFT TISSUES: Age-indeterminate T12 inferior endplate compression fracture. No suspicious lytic or blastic lesions. Mild multilevel degenerative changes. IMPRESSION: Sigmoid diverticulosis without CT evidence of diverticulitis. Mild bilateral hydronephrosis. No renal calculi or solid mass lesions. Diffuse hepatic steatosis. Signed by: Glo Martinez MD on 05/08/2019 2:26 PM
[2019-05-08] MEDS ORDERED: POTASSIUM CHLORIDE 20 MEQ TAB CR PO ONE (14:45)
[2019-05-08] MEDS ORDERED: ONDANSETRON HCL INJ 2MG/ML 2ML 2 MG/ML VIAL IV PRN (15:00)
[2019-05-08] MEDS ORDERED: ATORVASTATIN CA20 MG PO (15:10)
[2019-05-08] MEDS ORDERED: SUCRALFATE1 GM PO (15:10)
[2019-05-08] MEDS ORDERED: NEXIUM20 MG PO (15:10)
--- OUTSIDE RECORDS SUMMARY | 2019-05-08 15:35 | XMS REPORT | Continuity of Care Document ---
Author Author [facility] Organization [facility] Address Unknown Phone Unavailable Care Team Providers Care Cable Splicer Name Role Phone [facility] Unavailable Unavailable Problems Problem Status Onset Date Classification Date Reported Comments Source DX: G50.0=TRIGEMINAL NEURALGIA Active 09/27/2016 [facility] R10.2 - PELVIC AND PERINEAL PAIN Active 04/05/2016 [facility] [place] UNK Active 03/24/2014 [facility] Asthma (disorder) Active [facility] 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 Problem 10/25/2018 [facility] Diverticulitis (disorder) Active Problem 10/25/2018 [facility] TRIGEMINAL NEURALGIA Active [facility] Medications Medication Details Route Status Patient Instructions [...] > 4 days. No Longer Active 04/01/2014 [facility] Meperidine 25 mg, 0.5 mL, Route: IM, Drug form: INJ, Q3H, Dosing Weight 69.545, kg, PRN Pain Score 7-10, Start date: 04/01/14 15:29:00, Duration: 48 hr, Stop date: 04/03/14 15:28:00Notes: (Same As: Demerol) No Longer Active 04/01/2014 [facility] Tramadol 50 mg, 1 tab, Route: PO, Drug form: TAB, Q4H, Dosing Weight 69.545, kg, PRN Pain Score 4-6, Start date: 04/01/14 15:29:00, Duration: 48 hr, Stop date: 04/03/14 15:28:00Notes: Not to exceed 400mg/day. (Same As: Ultram) No Longer Active 04/01/2014 [facility] Calcium Chloride 0.002 MEQ/ML / Glucose 50 MG/ML / Potassium Chloride 0.004 MEQ/ML / Sodium Chloride 0.147 MEQ/ML Injectable Solution 1,000 mL, Rate: 125 ml/hr, Infuse over: 8 hr, Route: IV, Dosing Weight 69.545 kg, Total Volume: 1,000, Start date: 04/01/14 15:29:00, Duration: 30 day, Stop date: 05/01/14 15:28:00 No Longer Active 04/01/2014 [facility] acetaminophen-codeine #3 1 tab, Route: PO, Drug Form: TAB, Dosing Weight 69.545, kg, Q4H, PRN Pain Score 1-3, Start date: 04/01/14 15:29:00, Duration: 30 day, Stop date: 05/01/14 15:28:00Notes: Do not exceed 4gm/day of acetaminophen. (Same as: Tylenol with Codeine # 3) No Longer Active 04/01/2014 [facility] Docusate 100 mg, 1 cap, Route: PO, Drug form: CAP, BID, Dosing Weight 69.545, kg, PRN Constipation, Start date: 04/01/14 15:29:00, Duration: 30 day, Stop date: 05/01/14 15:28:00Notes: (Same as: Colace) (Do Not Crush) No Longer Active 04/01/2014 [facility] Simethicone 160 mg, 2 tab, Route: PO, Drug form: CHEWTAB, Q2H, Dosing Weight 69.545, kg, PRN Gas, Start date: 04/01/14 15:29:00, Duration: 30 day, Stop date: 05/01/14 15:28:00Notes: (Same as: Mylicon) No Longer Active 04/01/2014 [facility] Acetaminophen 325 MG / Hydrocodone Bitartrate 5 MG Oral Tablet [[place] 5/325] 1 tab, Route: PO, Drug Form: TAB, Dosing Weight 69.545, kg, Q4H, PRN Pain, Start date: 04/01/14 14:01:00, Duration: 30 day, Stop date: 05/01/14 14:00:00 Inactive 04/01/2014 [facility] Ondansetron 4 mg, Route: IVP, ONCE, Dosing Weight 69.545, kg, PRN Nausea & Vomiting, Start date: 04/01/14 14:01:00 Inactive 04/01/2014 [facility] Acetaminophen 1,000 mg, Route: IVPB, Drug form: INJ, ONCE, Dosing Weight 69.545, kg, PRN Pain Score 1-3, Start date: 04/01/14 14:01:00, Duration: 1 doses or times, Stop date: Limited # of times Inactive 04/01/2014 [facility] Flumazenil 0.2 mg, Route: IVP, PRN, Dosing Weight 69.545, kg, PRN Benzodiazepine Reversal, Initial dose, Start date: 04/01/14 14:01:00, Duration: 30 day, Stop date: 05/01/14 14:00:00 Inactive 04/01/2014 [facility] Meperidine 12.5 mg, Route: IVP, Q30Min, Dosing Weight 69.545, kg, PRN Other -See Comment, For shivering, Start date: 04/01/14 14:01:00, Duration: 2 doses or times, Stop date: Limited # of times Inactive 04/01/2014 [facility] Hydromorphone 0.5 mg, Route: IVP, Q5Min, Dosing Weight 69.545, kg, PRN Pain Score 7-10, Start date: 04/01/14 14:01:00, Duration: 4 doses or times, Stop date: Limited # of times Inactive 04/01/2014 [facility] Fentanyl 25 microgram, Route: IVP, Q5Min, Dosing Weight 69.545, kg, PRN Pain Score 4-6, Start date: 04/01/14 14:01:00, Duration: 4 doses or times, Stop date: Limited # of times Inactive 04/01/2014 [facility] Naloxone 0.04 mg, Route: IVP, Q2MIN, Dosing Weight 69.545, kg, PRN Narcotic Reversal, Start date: 04/01/14 14:01:00, Duration: 8 doses or times, Stop date: Limited # of times Inactive 04/01/2014 [facility] meclizine 25 mg oral tablet 25 mg=1 tab, Daily, 0 Refill(s) Active 04/01/2014 [facility] atorvastatin 20 mg, Daily, 0 Refill(s) Active 04/01/2014 [facility] Omeprazole 40 mg, Daily, 0 Refill(s) Active 04/01/2014 [facility] Metronidazole 500 MG Oral Tablet [Flagyl] 500 mg=1 tab, Q12H, 0 Refill(s) Active 04/01/2014 [facility] Calcium Chloride 0.0014 MEQ/ML / Potassium Chloride 0.004 MEQ/ML / Sodium Chloride 0.103 MEQ/ML / Sodium Lactate 0.028 MEQ/ML Injectable Solution 1,000 mL, Rate: 25 ml/hr, Infuse over: 40 hr, Route: IV, Dosing Weight 69.545 kg, Total Volume: 1,000, Start date: 04/01/14 10:15:00, Duration: 30 day, Stop date: 05/01/14 10:14:00 Inactive 04/01/2014 [facility] Cholesterol Pill Cholesterol Pill, 1 tab, PO, Daily, Refill(s) 0 Active 03/26/2014 [facility] Antibiotic Antibiotic, 1 tab, PO, BID, Refill(s) 0 Active 03/26/2014 [facility] Allergies, Adverse Reactions, Alerts Substance Category Reaction Severity Reaction type Status Date Reported Comments Source contrast media (iodine-based)<sup>1</sup> Assertion Patient states difficulty with breathing Severe Drug allergy Active patient states reaction was 4- 5 years ago [facility] Immunizations No Data Provided for This Section Results Order Name Results Value Reference Range Date Interpretation Comments Source URINE AND STOOL UA WBC 58 0 - 5 04/02/2014 [facility] URINE AND STOOL UA Sq Epi Occasional /LPF Few /LPF 04/02/2014 [facility] URINE AND STOOL UA Leuk Est Moderate *ABN* (04/02/14 11:45 AM) Negative 04/02/2014 [facility] URINE AND STOOL UA Color Ltyellow 04/02/2014 [facility] URINE AND STOOL UA Urobilinogen <=1.0 mg/dL 0.1 - 1.0 04/02/2014 [facility] URINE AND STOOL UA Bacteria Occasional /HPF None Seen /HPF 04/02/2014 [facility] URINE AND STOOL UA RBC 129 0 - 2 04/02/2014 [facility] URINE AND STOOL UA Nitrite Negative (04/02/14 11:45 AM) Negative 04/02/2014 [facility] URINE AND STOOL UA Blood Large *ABN* (04/02/14 11:45 AM) Negative 04/02/2014 [facility] URINE AND STOOL UA Bili Negative *NA* (04/02/14 11:45 AM) Negative 04/02/2014 [facility] URINE AND STOOL UA Protein Negative mg/dL Negative mg/dL 04/02/2014 [facility] URINE AND STOOL UA Ketones Negative mg/dL Negative mg/dL 04/02/2014 [facility] URINE AND STOOL UA Glucose Negative mg/dL Negative mg/dL 04/02/2014 [facility] URINE AND STOOL UA pH 7.0 5.0 - 8.0 04/02/2014 [facility] URINE AND STOOL UA Spec Grav 1.004 <=1.030 04/02/2014 [facility] URINE AND STOOL UA Turbidity Clear (04/02/14 11:45 AM) Clear 04/02/2014 [facility] URINE AND STOOL UA Amorph [place] Occasional /HPF None Seen /HPF 04/02/2014 [facility] HEMATOLOGY Basophils 0.7 0.0 - 1.0 04/02/2014 [facility] HEMATOLOGY Lymphocytes 20.8 20.0 - 40.0 04/02/2014 [facility] HEMATOLOGY Segs 71.2 45.0 - 75.0 04/02/2014 [facility] HEMATOLOGY Monocytes 6.3 2.0 - 12.0 04/02/2014 [facility] Eosinophils 1.0 0.0 - 4.0 04/02/2014 [facility] HEMATOLOGY Segs-Bands # 7.7 1.5 - 8.1 04/02/2014 [facility] HEMATOLOGY Monocytes # 0.7 0.0 - 0.8 04/02/2014 [facility] HEMATOLOGY Lymphocytes # 2.2 1.0 - 5.5 04/02/2014 [facility] HEMATOLOGY Basophils # 0.1 0.0 - 0.2 04/02/2014 [facility] HEMATOLOGY Eosinophils # 0.1 0.0 - 0.5 04/02/2014 [facility] MPV 8.6 7.4 - 10.4 04/02/2014 [facility] Platelet 266 133 - 450 04/02/2014 [facility] MCH 32.2 27.0 - 31.0 04/02/2014 [facility] MCHC 34.1 32.0 - 36.0 04/02/2014 [facility] HEMATOLOGY RDW 13.4 11.5 - 14.5 04/02/2014 [facility] HEMATOLOGY RBC 4.16 4.20 - 5.40 04/02/2014 [facility] HEMATOLOGY Hgb 13.4 12.0 - 16.0 04/02/2014 [facility] HEMATOLOGY WBC 10.8 3.7 - 10.4 04/02/2014 [facility] HEMATOLOGY MCV 94.2 81.0 - 99.0 04/02/2014 [facility] HEMATOLOGY Hct 39.2 36.0 - 48.0 04/02/2014 [facility] CHEM PANEL A/G Ratio 1.0 0.7 - 1.6 03/26/2014 [facility] CHEM PANEL Globulin 3.6 2.0 - 4.0 03/26/2014 [facility] CHEM PANEL AGAP 11.6 10.0 - 20.0 03/26/2014 [facility] CHEM PANEL B/C Ratio 15 6 - 25 03/26/2014 [facility] CHEM PANEL eGFR 93 03/26/2014 <sup>1</sup>Result Comment: [...] should be multiplied by the estimated BMI. [facility] CHEM PANEL Bili Total 0.4 0.2 - 1.3 03/26/2014 [facility] CHEM PANEL Alk Phos 83 39 - 136 03/26/2014 [facility] CHEM PANEL Albumin Lvl 3.7 3.5 - 5.0 03/26/2014 [facility] CHEM PANEL AST 17 0 - 37 03/26/2014 [facility] CHEM PANEL ALT 28 0 - 65 03/26/2014 [facility] CHEM PANEL Total Protein 7.3 6.4 - 8.4 03/26/2014 [facility] CHEM PANEL Calcium Lvl 8.9 8.5 - 10.5 03/26/2014 [facility] CHEM PANEL Potassium Lvl 3.6 3.5 - 5.1 03/26/2014 [facility] CHEM PANEL CO2 29 24 - 32 03/26/2014 [facility] CHEM PANEL Chloride Lvl 102 95 - 109 03/26/2014 [facility] CHEM PANEL Sodium Lvl 139 135 - 145 03/26/2014 [facility] CHEM PANEL Glucose Lvl 115 70 - 99 03/26/2014 <sup>2</sup>Interpretive Data: Adult reference range values reflect the clinical guidelines
of the [place] [employer]. [facility] CHEM PANEL BUN 9 7 - 22 03/26/2014 [facility] CHEM PANEL Creatinine Lvl 0.6 0.5 - 1.4 03/26/2014 [facility] HEMATOLOGY Eosinophils # 0.3 0.0 - 0.5 03/26/2014 [facility] HEMATOLOGY Basophils # 0.1 0.0 - 0.2 03/26/2014 [facility] HEMATOLOGY Monocytes 9.1 2.0 - 12.0 03/26/2014 [facility] HEMATOLOGY Segs-Bands # 4.5 1.5 - 8.1 03/26/2014 [facility] HEMATOLOGY Lymphocytes # 2.5 1.0 - 5.5 03/26/2014 [facility] HEMATOLOGY Lymphocytes 30.1 20.0 - 40.0 03/26/2014 [facility] HEMATOLOGY Segs 55.3 45.0 - 75.0 03/26/2014 [facility] HEMATOLOGY Monocytes # 0.7 0.0 - 0.8 03/26/2014 [facility] HEMATOLOGY Eosinophils 4.3 0.0 - 4.0 03/26/2014 [facility] HEMATOLOGY Basophils 1.2 0.0 - 1.0 03/26/2014 [facility] HEMATOLOGY WBC 8.2 3.7 - 10.4 03/26/2014 [facility] HEMATOLOGY Hgb 14.4 12.0 - 16.0 03/26/2014 [facility] HEMATOLOGY RBC 4.50 4.20 - 5.40 03/26/2014 [facility] HEMATOLOGY Hct 42.4 36.0 - 48.0 03/26/2014 [facility] HEMATOLOGY Platelet 265 133 - 450 03/26/2014 [facility] HEMATOLOGY MPV 9.1 7.4 - 10.4 03/26/2014 [facility] HEMATOLOGY MCV 94.3 81.0 - 99.0 03/26/2014 [facility] MCH 32.1 27.0 - 31.0 03/26/2014 [facility] HEMATOLOGY RDW 13.7 11.5 - 14.5 03/26/2014 [facility] MCHC 34.0 32.0 - 36.0 03/26/2014 [facility] Pathology Reports No Data Provided for This [...] for fracture. This exam was interpreted at [id number] for RUSTY Mcmillan, BALB[place] 15. [place] M.D. cm/penrad:10/22/2018 10:58:05 Museum Exhibit Technician(s): Tonya Brumfield RT(R)(M), [facility] 10/22/2018 KEVIN Mcmillan Brain wo contrast MRI [...] ischemic change. 3. Otherwise normal study. SL: [id number] 09/30/2016 [facility] w Pelvis Transvaginal US [...] radiographic abnormality in the chest. SL:13 03/26/2014 [facility] Consultation Notes No Data Provided for This Section Discharge Summaries No Data Provided for This Section History and Physicals No Data Provided for This Section Vital Signs Vital Sign Value Date Comments Source Diastolic (mm Hg) 71 04/02/2014 [facility] Respitory Rate 18 04/02/2014 [facility] Systolic (mm Hg) 126 04/02/2014 [facility] Temperature Oral (F) 98.1 F 04/02/2014 [facility] Heart Rate 65 04/02/2014 [facility] Heart Rate 75 04/02/2014 [facility] Respitory Rate 18 04/02/2014 [facility] Systolic (mm Hg) 124 04/02/2014 [facility] Diastolic (mm Hg) 71 04/02/2014 [facility] Temperature Oral (F) 99.2 F 04/02/2014 [facility] Systolic (mm Hg) 134 04/02/2014 [facility] Respitory Rate 18 04/02/2014 [facility] Temperature Oral (F) 98.2 F 04/02/2014 [facility] Heart Rate 77 04/02/2014 [facility] Diastolic (mm Hg) 60 04/02/2014 [facility] Weight 69.545 03/26/2014 [facility] Height 162.56 cm 03/26/2014 [facility] BMI Calculated 26.32 03/26/2014 [facility] Encounters Location Location Details Encounter Type Encounter Number Reason For Visit Attending Provider ADM Date DC Date Status Source [facility] OBS Day Surgery [id number] Cherry Dennis 04/01/2014 04/02/2014 [facility] [place] [facility] [id number] Quinton Jarrett 06/04/2014 06/05/2014 [facility] [place] [facility] [id number] Quinton Jarrett 12/25/2014 12/26/2014 [facility] [place] [facility] [id number] Quinton Jarrett 04/21/2015 04/22/2015 [facility] [place] [facility] [id number] Quinton Jarrett 04/07/2016 [facility] [id number] Cari Mitchelldalorrie 09/30/2016 10/01/2016 [facility] [place] [facility] [id number] Quinton Jarrett 10/22/2018 10/23/2018 KEVIN Mcmillan Procedures Procedure Code Date Perfomer Comments Source Laparoscopic cholecystectomy [id number] 01/21/2012 KEVIN Mcmillan, [place] Assessment and Plan [...] No; Reg Smoking Cessation Counseling No 03/26/2014 [facility] Family History No Data Provided for This Section Advance Directives No Data Provided for This Section Functional Status No Data Provided for This Section
[2019-05-08] MEDS: FAMOTIDINE 20 MG/2 ML VIAL IV SCH (16:39)
[2019-05-08] MEDS ORDERED: IOPAMIDOL 370 MG/ML 200 ML INFUS..BTL INJ ONE (17:55)
[2019-05-08] MEDS ORDERED: SODIUM CHLORIDE 0.9% 50ML 50 ML ONE (17:55)
[2019-05-08 20:53] VITALS: BP 141/65
--- NOTE | 2019-05-08 20:53 | NUR ---
Patient arrived from ER via stretcher. Admitted for abdominal pain and rectal bleeding. The patient provided the medical and surgical history. The patient stated the rectal bleeding started on Monday evening started as bright red. The patient stated her next BM was also with bright red then the following BMs became dark stools until today as well. The patient lives with her spouse and provided the number of her GI: Dr. Uri Joy. Nautical Instrument Mechanic will call for consult. Patient is A/Ox3 with VS within normal parameters. Patient reported no abdominal pain. Call light within reach, bed height low, side rails up x2 and wheels lock. Patient instructed to call for assistance if feeling nausea or lightheaded. Verbalized understanding. Will monitor patient for bright red rectal bleeding or dark stool.
[2019-05-08 21:11] VITALS: BP 141/65
[2019-05-08 21:22] VITALS: BP 141/65
[2019-05-09] VITALS (8 sets, daily range): BP systolic 107–144; BP diastolic 56–78
[2019-05-09 06:21] LABS: BASOPHILS # (AUTO) 0.1 (0.0-0.1); BASOPHILS % 0.7 % (0.0-1.0); EOSINOPHILS # (AUTO) 0.2 (0.0-0.4); EOSINOPHILS % 2.7 % (0.0-6.0); HEMATOCRIT 42.3 % (34.2-44.1); HEMOGLOBIN 14.2 g/dL (12.0-16.0); LYMPHOCYTES # (AUTO) 2.7 (1.0-3.2); LYMPHOCYTES % 38.9 % (18.0-39.1); MEAN CORPUSCULAR HEMOGLOBIN 31.6 pg (28-32); MEAN CORPUSCULAR HGB CONC 33.6 g/dL (31-35); MONOCYTES # (AUTO) 0.5 (0.2-0.8); MONOCYTES % 7.4 % (4.4-11.3); NEUTROPHILS # (AUTO) 3.5 (2.1-6.9); PLATELET COUNT 242 x10e3/uL (140-360); RED CELL DISTRIBUTION WIDTH 12.9 % (11.7-14.4)
[2019-05-09 06:46] LABS: ANION GAP 11.5 mmol/L (8-16); BLOOD UREA NITROGEN 8 mg/dL (7-26); BUN/CREATININE RATIO 13 (6-25); CALCIUM 9.3 mg/dL (8.4-10.2); CARBON DIOXIDE 27 mmol/L (22-29); CHLORIDE 106 mmol/L (98-107); CREATININE, SERUM 0.61 mg/dL (0.57-1.11); EST GLOMERULAR FILTRATION RATE > 60 ML/MIN (60-); GLUCOSE 92 mg/dL (74-118); POTASSIUM 3.5 mmol/L (3.5-5.1); SODIUM 141 mmol/L (136-145)
--- NOTE | 2019-05-09 07:00 | NUR ---
BEDSIDE SHIFT REPORT RECEIVED FROM ORACLE E BUSINESS DEVELOPER RN. PT DENIES NEEDS AT THIS TIME.
--- NOTE | 2019-05-09 07:30 | NUR ---
PT HAS HAD A BM WITH JUST A TRACE OF ANGELLA RED BLOOD. AND URINE. STOOL WAS FORMED,MEDIUM ANS LIGHT BROWN.
--- NOTE | 2019-05-09 08:18 | NUR ---
BLADDER SCAN DONE BY DR. TRAN AND THIS NURSE WITH 81 ML RESIDUAL RESULTING ON BOTH SCANS.
[2019-05-09] MEDS: FAMOTIDINE 20 MG/2 ML VIAL IV SCH ×2 (09:03→17:45)
--- NOTE | 2019-05-09 15:02 | Consultation ---
DATE OF CONSULTATION: 05/09/2019 Urology Consultation REASON FOR CONSULTATION: Hydronephrosis. HISTORY OF PRESENT ILLNESS: Tabitha Vitale is a 73-year-old woman, who is status post some sort of bladder suspension by Dr. Dennis at [facility]. The patient reports a sensation of incomplete bladder emptying ever since he did that. She denies recurrent hematuria, dysuria, or recent urinary tract infection. She is admitted with blood per rectum. The patient also had some lower abdominal pain. CT scanning showed mild bilateral hydroureteronephrosis with a distended bladder and urological consultation was sought. PAST MEDICAL AND SURGICAL HISTORY: 1. Status post cholecystectomy. 2. Status post appendectomy. 3. Status post total abdominal hysterectomy with unilateral oophorectomy. 4. 2, para 2 with spontaneous vaginal delivery. 5. Hypocholesterolemia. CURRENT MEDICATIONS: Please refer to the MAR. ALLERGIES: NONE KNOWN. SOCIAL HISTORY: The patient denies smoking, ethanol, or drug use. She is a retired homemaker. FAMILY HISTORY: Noncontributory to the active urological problems. REVIEW OF SYSTEMS: Discussed as above in history of present illness and past medical history, is otherwise negative for all systems. PHYSICAL EXAMINATION: GENERAL: Physical examination was performed with the nurse Michelle in the room. Healthy-appearing 73-year-old woman, lying in bed, in no apparent distress. VITAL SIGNS: She is currently afebrile. Vital signs are currently stable. ABDOMEN: Soft, nondistended, slightly tender in suprapubic area without costovertebral angle tenderness. Kidneys not palpable without hepatosplenomegaly. No obvious evidence of hernia. GENITOURINARY: Normal external female genitalia. Internal examination is deferred. Upon examination, I used the bladder scanner twice to get a postvoid residual of 81 mL. For the remaining physical examination systems, please refer to the emergency room T-sheet as well as the admission history and physical. LABORATORY STUDIES: CT scan of the abdomen and pelvis revealed a distended urinary bladder with bilateral hydroureteronephrosis. The patient is status post cholecystectomy and has mild bilateral hydroureteronephrosis. There is also a T12 inferior endplate compression fracture of indeterminate age along with degenerative joint disease. The patient's potassium was 3.0 yesterday. It has normalized to 3.5 today. Her creatinine is normal at 0.61. White blood cell count 6910, hemoglobin 14.2, and platelets 242,000. PT and PTT are normal. Urinalysis is unremarkable. ASSESSMENT: 1. Bilateral hydroureteronephrosis. 2. Incomplete bladder emptying. 3. Hypokalemia that improved. PLAN: 1. Refer the hematological electrolyte as well as GI abnormalities to the admitting team. 2. Once the patient is an outpatient, she should follow up for urodynamics study. At that point in time, a good pelvic examination will be performed and we will evaluate whether anything needs to be done for her incomplete bladder emptying sensation that has been present since her gynecological surgery. 3. I will also evaluate the upper tract on a long-term basis. This may require cystoscopy and retrograde pyelograms to ensure no anatomical obstruction. Thank you very much for involving us in the care of your patient. We will be happy to follow her along with you as well as an outpatient. Félix Shaffer MD [facility] /[id number] cc: Quinton Jarrett MD
--- NOTE | 2019-05-09 19:35 | NUR ---
spoke with dr. almaraz, orders received for discharge tonight. patient aware, waiting transportation.
--- NOTE | 2019-05-09 19:57 | NUR ---
tele box returned to tele room. awaiting for transportation.
== END 2019-05-09 20:06 | disposition home or self-care (01) ==
LOC: ER 11:37 → INTOOBSV 14:54 → ERHOLD 14:54 → MED/SURG 20:56
PROVIDERS: ADMIT Internal Medicine; ATTEND Internal Medicine
DX: K92.1 Melena (principal); N13.30 Unspecified hydronephrosis; R33.9 Retention of urine, unspecified; E87.6 Hypokalemia; Z90.49 Acquired absence of other specified parts of digestive tract; K21.9 Gastro-esophageal reflux disease without esophagitis; E78.5 Hyperlipidemia, unspecified
CPT/HCPCS: 36415 ×2; 74177; 80048; 80053; 81001; 82150; 83690; 85025 ×2; 85610; 85730; 99284; G0378 ×2; Q9967

== ENCOUNTER → 2020-07-15 | Outpatient (CLI) | payer OTHER ==
[~2020-07-15] MED LIST changes: +ATORVASTATIN CA20 MG PO; +DICYCLOMINE HCL10 MG PO; +NEXIUM20 MG PO; +SUCRALFATE1 GM PO
--- NOTE | 2020-07-15 13:05 | Diagnostic Imaging Report ---
Renal ultrasound Comparison: CT abdomen on 05/08/2019 Clinical History: Hydronephrosis Technique: Sonographic evaluation of the kidneys was performed. Multiple images were submitted for interpretation, using a low-frequency curved transducer. Right kidney: The kidney measures 12.3 x 4.7 x 5.5 cm. The cortical echogenicity is within normal limits. The cortex measures 1.3 cm. There is no evidence of a focal mass. There is mild hydronephrosis. There is no evidence of a shadowing stone. There is no evidence of a cyst. There is no evidence of a perinephric fluid collection. Flow is visualized to the right kidney. Left kidney: The kidney measures 12.1 x 4.7 x 4.6 cm. The cortical echogenicity is within normal limits. The cortex measures 1.7 cm. There is no evidence of a focal mass. There is mild hydronephrosis. There is no evidence of a shadowing stone. There is no evidence of a cyst. There is no evidence of a perinephric fluid collection. Flow is visualized to the left kidney. Survey images of the bladder demonstrate no abnormality. Bilateral ureteral jets are seen. The prevoid volume is 31 cc. Postvoid volume is 7 cc. Impression: Mild bilateral hydronephrosis. Signed by: Ruddy Jay MD on 07/15/2020 1:01 PM
== END ==
LOC: US 11:33
PROVIDERS: ATTEND Urology
DX: N13.30 Unspecified hydronephrosis (principal)
CPT/HCPCS: 76770; 76857

== ENCOUNTER → 2020-08-07 | Outpatient (CLI) | payer MEDICARE ==
[~2020-08-07] MED LIST changes: +FUROSEMIDE INJ 10 MG/ML 4 ML VIAL ONE
== END ==
LOC: NM 11:14
PROVIDERS: ATTEND Urology
DX: N13.30 Unspecified hydronephrosis (principal)
CPT/HCPCS: 78708; A9562; J1940

== ENCOUNTER → 2021-06-15 | Outpatient (CLI) | payer MEDICARE ==
[~2021-06-15] MED LIST changes: -FUROSEMIDE INJ 10 MG/ML 4 ML VIAL ONE
== END ==
LOC: US 08:18
PROVIDERS: ATTEND Urology
DX: R33.9 Retention of urine, unspecified (principal)
CPT/HCPCS: 76770

== ENCOUNTER → 2022-10-05 | Outpatient (CLI) | payer MEDICARE ==
[~2022-10-05] MED LIST changes: +IOPAMIDOL 370 MG/ML 100 ML INFUS..BTL INJ ONE
[2022-10-05 14:37] LABS: CREATININE, SERUM 0.56 mg/dL (0.57-1.11)
== END ==
LOC: CT 13:41
PROVIDERS: ATTEND Surgery
DX: R10.9 Unspecified abdominal pain (principal); R19.7 Diarrhea, unspecified; R63.4 Abnormal weight loss
CPT/HCPCS: 36415; 74174; 82565; 84520; Q9967

== ENCOUNTER → 2022-11-09 | Outpatient (CLI) | payer MEDICARE ==
[~2022-11-09] MED LIST changes: -IOPAMIDOL 370 MG/ML 100 ML INFUS..BTL INJ ONE
== END ==
LOC: RAD 11:30
PROVIDERS: ATTEND Internal Medicine
DX: S93.401A Sprain of unspecified ligament of right ankle, initial encounter (principal); M77.31 Calcaneal spur, right foot

== ENCOUNTER → 2022-11-22 | Outpatient (CLI) | payer MEDICARE | LOC: DX 09:34 | PROVIDERS: ATTEND Internal Medicine | DX: M85.88 Other specified disorders of bone density and structure, other site (principal) | CPT/HCPCS: 77080 ==

== ENCOUNTER → 2023-12-26 | Outpatient (RCR) | payer MEDICARE | LOC: PT 12-01 10:40 | PROVIDERS: ATTEND Internal Medicine | DX: M47.812 Spondylosis without myelopathy or radiculopathy, cervical region (principal) ==

== ENCOUNTER 2024-01-30 10:13 | Outpatient (RCR) | payer MEDICARE | END 2024-02-25 | LOC: PT 10:13 | PROVIDERS: ATTEND Internal Medicine | DX: M47.812 Spondylosis without myelopathy or radiculopathy, cervical region (principal) ==